=== PATIENT | male | born 1940 | race Caucasian/White ===

== ENCOUNTER 2020-02-16 07:44 | Outpatient (CLI) | payer MEDICARE, SELFPAY ==
[2020-02-17 14:46] LABS: SARS-CoV-2 RNA PCR Negative
== END 2020-02-16 07:45 | disposition home or self-care (01) ==
DX: Z01.818 Encounter for other preprocedural examination (principal); Z11.59 Encounter for screening for other viral diseases
CPT/HCPCS: 87635; C9803; U0003

== ENCOUNTER 2023-08-27 11:03 | Outpatient (CLI) | payer MEDICARE, SELFPAY ==
--- NOTE | 2023-08-27 11:37 | ECG_ITS ---
Measurements Intervals [place] Rate: 64 P: ND: 0 QRS: -7 QRSD: 101 T: 21 QT: 378 QTc: 390 Interpretive Statements SINUS RHYTHM CHANGES TO JUNCTIONAL RHYTHM BASELINE ARTIFACT- I, II, III, AVR, AVL, AVF ABNORMAL ECG NO PREVIOUS ECG AVAILABLE FOR COMPARISON Electronically Signed On 08-27-2023 12:27:58 [employer] by Jarvis Abraham D.O.
[2023-08-27 12:16] LABS: Hematocrit 43.2 % (42.0-52.0); Hemoglobin 14.1 g/dL (14.0-18.0); Mean Corpuscular HGB Conc 32.6 g/dl (32-36); Mean Corpuscular Hemoglobin 33.7 pg (26-34); Mean Corpuscular Volume 103.3 fl (80-100); Mean Platelet Volume 10.5 fl (7.4-10.4); Platelet Count Result 217 k/mm3 (150-375); Red Blood Count 4.18 M/mm3 (4.6-6.20); Red Cell Distribution Width 13.4 % (11.5-14.5); White Blood Count 7.3 K/mm3 (4.5-10.0)
[2023-08-27 12:18] LABS: Appearance Urine Clear (Clear); Bilirubin Urine Negative (Negative); Blood Urine Negative (Negative); Color Urine Yellow (Yellow); Glucose Urine UA Negative (Negative); Ketones Urine Negative (Negative); Leukocyte Esterase Ur Negative LEU/UL (Negative); Nitrate Urine Negative (Negative); Protein Urine Negative (Negative); Specific Grav Ur 1.011 (1.001-1.035)
[2023-08-27 12:21] LABS: Add Urine Microscopic? NO
[2023-08-27 12:26] LABS: Anion Gap 7 mmol/L (8-16); Blood Urea Nitrogen 19 mg/dL (9-20); Calcium 10.1 mg/dL (8.4-10.2); Carbon Dioxide 27 mmol/L (22-30); Chloride 101 mmol/L (98-107); Estimated Glomerular Filt Rate > 60; Glucose 99 mg/dL (65-110); Potassium 4.8 mmol/L (3.4-5.0); Sodium 135 mmol/L (137-145)
[2023-08-27 12:29] LABS: INR 1.2; Prothrombin Time 15.8 Seconds (11.1-14.7)
[2023-08-27 12:32] LABS: Partial Thromboplastin Time 36.7 SECONDS (22.3-36.8)
== END 2023-08-27 11:04 | disposition home or self-care (01) ==
PROVIDERS: PCP Internal Medicine Geriatric Medicine; Visit Provider Neurological Surgery
DX: M54.9 Dorsalgia, unspecified (principal); G89.29 Other chronic pain; E78.00 Pure hypercholesterolemia, unspecified; Z01.818 Encounter for other preprocedural examination
CPT/HCPCS: 36415; 80048; 81003; 85027; 85610; 85730; 93005

== ENCOUNTER 2023-09-04 02:44 | Day surgery (SDC) | payer MEDICARE, SELFPAY ==
[2023-08-24 14:52] VITALS: BMI 33.7
--- NOTE | 2023-08-24 15:08 | PC.NURSE ---
PRE-OP INSTRUCTIONS, PLEASE READ CAREFULLY Report to the Outpatient Waiting Room, entrance under the green pavilion located off [facility], at time _0730_ on date _09/04/23_. Planned Procedure Time: _0930_. PACK A SMALL OVERNIGHT BAG AND LEAVE IN THE CAR Time changes happen often and if your time is changed the preop area will call you the afternoon before. - You and your visitor will be asked to self-screen and do not enter if you have any COVID symptoms. - A mask is optional within the hospital at this time. -VISITING HOURS 8AM-8PM Patients may have clear liquids (water, carbonated beverages, clear teas, apple juice) until 3 hours prior to surgery (0630 AM) with a maximum of 20 ounces. - No food from midnight until time of surgery Take the following medications with a SIP of water the morning of surgery: _TRELEGY INHALER, & ALBUTEROL INHALER, TYLENOL IF NEEDED_ DO NOT STOP ANY OF YOUR OTHER PRESCRIPTION MEDICATIONS PRIOR TO SURGERY ?EXCEPT THE FOLLOWING Medications to discontinue per DR. CRANE/DR. NICOLE - _ELIQUIS 7 DAYS PRIOR TO SURGERY, Date to take last dose 08/27/23_ Medications to discontinue per ANESTHESIA - _VITAMINS & SUPPLEMENTS 3 DAYS PRIOR TO SURGERY, Date to take last dose 08/31/23_ Please no make-up, nail turkish, hairspray, perfume, deodorant, or body powder the day of surgery. No jewelry (including any body piercings) or valuables the day of surgery, leave them at home. Please take a shower or bath the night before, or the morning of, surgery with an antibacterial soap. Wear comfortable, loose fitting clothing. - Jewelry must be removed prior to entering the operating room. Rings and piercings that are not removed may be cut off. - The hospital will not accept responsibility for valuables. - Please leave all valuables, including medications, at home the day of surgery. If you are going home after surgery, a licensed driver/merchandiser must drive you home. - NO public transportation without another adult if you receive anesthesia. - We recommend that an adult stay with you for 24 hours following discharge. - We also recommend that you do not drive, make important decision, drink alcoholic beverages, or take any drugs that were not prescribed by your health care provider for at least 24 hours after your discharge time. Follow any additional instructions given to you from your surgeon. If you or anyone in your household have experienced Covid symptoms in the past week, please notify your surgeon or the nurse liaison at the phone number below for possible testing. Telephone instructions given to _PATIENT__and asked if any additional questions and then verbalized understanding. Patient advised to call surgeon office or pre surgery nurse liaison [phone] if any additional questions.
--- NOTE | 2023-09-03 15:08 | WPDANESEPPF ---
Anes - Initial Pre Proc Eval Procedure: Operation Date: 09/04/23 09:30 Proposed Procedures p Placement Dorsal Column Stimulator Lead and Generator - Michael Sears MD Date/Time: 09/03/23 15:08 Surgeon: Michael eSars MD Pre Op Diagnosis: dorsalgia,leg pain Patient Data Age: 82 Gender: M Height: 1.83 m Weight: 112.72 kg Allergies Allergy/AdvReac Type Severity Reaction Status Date / Time cefdinir Allergy Mild Jittery Verified 09/04/23 07:46 hydrocodone Allergy Mild Hives Verified 09/04/23 07:46 hydroxychloroquine Allergy Mild Hives Verified 09/04/23 07:46 lisinopril Allergy Mild Itching Verified 09/04/23 07:46 oxycodone Allergy Mild hives Verified 09/04/23 07:46 codeine AdvReac Mild Nausea Verified 09/04/23 07:48 Home Medications Medication Instructions Recorded Confirmed Type acetaminophen 650 mg 650 mg PO Q8H PRN Pain 12/15/22 09/04/23 History tablet,extended release albuterol sulfate 0.63 mg/3 mL 0.63 mg inhalation Q6H PRN Wheezing 12/15/22 09/04/23 History solution for nebulization albuterol sulfate 90 mcg/actuation 1 puff inhalation Q6H PRN Wheezing 12/15/22 09/04/23 History aerosol inhaler apixaban 5 mg tablet 5 mg PO BID 12/15/22 09/04/23 History benzonatate 100 mg capsule 100 mg PO TID PRN Cough 12/15/22 09/04/23 History cholecalciferol (vitamin D3) 50 50 mcg PO DAILY 12/15/22 09/04/23 History mcg (2,000 unit) capsule finasteride 5 mg tablet 5 mg PO DAILY 12/15/22 09/04/23 History fluticasone fur. 100 mcg-umeclid 1 inh inhalation DAILY 12/15/22 09/04/23 History 62.5 mcg-vilant 25 mcg inhalat.powder (Trelegy Ellipta) mecobalamin (vitamin B12) 1,000 1,000 mcg PO DAILY 12/15/22 09/04/23 History mcg chewable tablet pantoprazole 40 mg granules 40 mg PO DAILY 12/15/22 09/04/23 History delayed-release for susp in packet polyethylene glycol 3350 17 17 g PO DAILY 12/15/22 09/04/23 History gram/dose oral powder pravastatin 80 mg tablet 80 mg PO DAILY 12/15/22 09/04/23 History tamsulosin 0.4 mg capsule 0.4 mg PO DAILY 12/15/22 09/04/23 History vit 1 cap PO BID 12/15/22 09/04/23 History C,E,zinc,Hu-rnutv-2-lutein-zeaxanthin 250 mg-2.5 mg-0.5 mg capsule Patient hx anesthesia problems: none Family hx anesthesia problems: none Results Review: All pre-operative results and documents have been reviewed as part of the pre-operative evaluation. [facility] Past Medical History Medical History (Updated 09/03/23 @ 15:09 by Chad Dimas DO) Chronic pain COPD (chronic obstructive pulmonary disease) DVT (deep venous thrombosis) GERD (gastroesophageal reflux disease) Hyperlipidemia TIA (transient ischemic attack) Surgical History Surgical History H/O knee surgery (~2005) H/O sinus surgery (~1961) Hx of cholecystectomy (~2015) Family History Family History Father Heart disease Cerebrovascular accident Mother Carcinoma of colon Heart disease Cerebrovascular accident Sibling Alcoholism Heart disease Daughter Asthma Diabetes mellitus Social History Social History Smoking packs per day: 3 Smoking cigarettes per day: 60.0 Years smoked: 50 Smoking pack-years: 150.00 Smoking status: Former smoker Tobacco type: cigarettes Second hand tobacco smoke exposure: No Smoking end date: 10/08/07 Alcohol intake: current Drinks per week: 2 Alcohol use details: SOCIALLY 5/MONTH Substance use: never Substance use type: does not use Lack of Transportation: No Lack of Food: Never True Current Housing: I Have Housing Concerned About Future Housing: No Difficulty Paying Gas/Electric Bills: No Difficulty Paying for Meds: No Currently Unemployed: No Education: Trade/Vocational Certificate Difficulty w/ Childcare or Family Care: No Living arrangement
[2023-09-04] VITALS (16 sets, daily range): BP systolic 104–140; BP diastolic 49–95; PULSE 50–104; RESP 10–18; TEMP 36.1–36.6; O2SAT 92–100
--- NOTE | ~2023-09-04 | XR_ITS ---
XR fluoroscopy no charge Indication: Placement of neurostimulator lead. TECHNIQUE: Fluoroscopy used during Placement of neurostimulator lead. performed by [Michael gordon MD] on 09/04/2023. 10 seconds of fluoroscopy. with 2 fluoroscopic images captured. FINDINGS: Correlate with procedure note. IMPRESSION: Fluoroscopy used during Placement of neurostimulator lead.. Reviewed, dictated and finalized at location L. [employer]
[2023-09-04] MEDS: LACTATED RINGERS 1,000 ML 30 ML IV CONT (08:00)
[2023-09-04 08:35] LABS: INR 0.9; Partial Thromboplastin Time 27.8 SECONDS (22.3-36.8)
--- NOTE | 2023-09-04 09:44 | PM.IMHP ---
H&P: HPI History of Present Illness Date/Time: 09/04/23 09:44 Chief Complaint: Back and leg pain Narrative: Naveed is an 82-year-old gentleman with chronic back and leg pain that responded to a successful dorsal column stimulator trial who presents for permanent implantation. He has not changed appreciably since we last saw him. He does not have specific muscle group weakness or dermatomal numbness. He is not having any bowel or bladder difficulty. Review of Systems Review of Systems: Patient denies shortness of breath, cough, fever, chills, nausea, vomiting, weight loss, weight gain, chest pain, dysuria. He has back and leg pain as above. His review of systems is otherwise negative on 12 systems except as noted elsewhere. [facility] Past Medical History Medical History (Updated 09/03/23 @ 15:09 by Chad Dimas DO) Chronic pain COPD (chronic obstructive pulmonary disease) DVT (deep venous thrombosis) GERD (gastroesophageal reflux disease) Hyperlipidemia TIA (transient ischemic attack) Surgical History Surgical History H/O knee surgery (~2005) H/O sinus surgery (~1961) Hx of cholecystectomy (~2015) Family History Family History Father Heart disease Cerebrovascular accident Mother Carcinoma of colon Heart disease Cerebrovascular accident Sibling Alcoholism Heart disease Daughter Asthma Diabetes mellitus Social History Social History Smoking packs per day: 3 Smoking cigarettes per day: 60.0 Years smoked: 50 Smoking pack-years: 150.00 Smoking status: Former smoker Tobacco type: cigarettes Second hand tobacco smoke exposure: No Smoking end date: 10/08/07 Alcohol intake: current Drinks per week: 2 Alcohol use details: SOCIALLY 5/MONTH Substance use: never Substance use type: does not use Lack of Transportation: No Lack of Food: Never True Current Housing: I Have Housing Concerned About Future Housing: No Difficulty Paying Gas/Electric Bills: No Difficulty Paying for Meds: No Currently Unemployed: No Education: Trade/Vocational Certificate Difficulty w/ Childcare or Family Care: No Living arrangements: with family Spiritual care concerns: No Meds Home Medications and Allergies Home Medications Medication Instructions Recorded Confirmed Type acetaminophen 650 mg 650 mg PO Q8H PRN Pain 12/15/22 09/04/23 History tablet,extended release albuterol sulfate 0.63 mg/3 mL 0.63 mg inhalation Q6H PRN Wheezing 12/15/22 09/04/23 History solution for nebulization albuterol sulfate 90 mcg/actuation 1 puff inhalation Q6H PRN Wheezing 12/15/22 09/04/23 History aerosol inhaler apixaban 5 mg tablet 5 mg PO BID 12/15/22 09/04/23 History benzonatate 100 mg capsule 100 mg PO TID PRN Cough 12/15/22 09/04/23 History cholecalciferol (vitamin D3) 50 50 mcg PO DAILY 12/15/22 09/04/23 History mcg (2,000 unit) capsule finasteride 5 mg tablet 5 mg PO DAILY 12/15/22 09/04/23 History fluticasone fur. 100 mcg-umeclid 1 inh inhalation DAILY 12/15/22 09/04/23 History 62.5 mcg-vilant 25 mcg inhalat.powder (Trelegy Ellipta) mecobalamin (vitamin B12) 1,000 1,000 mcg PO DAILY 12/15/22 09/04/23 History mcg chewable tablet pantoprazole 40 mg granules 40 mg PO DAILY 12/15/22 09/04/23 History delayed-release for susp in packet polyethylene glycol 3350 17 17 g PO DAILY 12/15/22 09/04/23 History gram/dose oral powder pravastatin 80 mg tablet 80 mg PO DAILY 12/15/22 09/04/23 History tamsulosin 0.4 mg capsule 0.4 mg PO DAILY 12/15/22 09/04/23 History vit 1 cap PO BID 12/15/22 09/04/23 History C,E,zinc,Ny-yrvcm-0-lutein-zeaxanthin 250 mg-2.5 mg-0.5 mg capsule Allergies Allergy/AdvReac Type Severity Reaction Status Date / Time cefdinir Allergy Mild Jittery Verified 08/09
--- NOTE | 2023-09-04 09:46 | WPDHPUPDATE1 ---
History and Physical Update Update Date/Time: 09/04/23 09:46 History and Physical has been reviewed, including an updated exam of the patient. There are NO changes in the patient's condition. Risks, benefits, and alternatives have been discussed and questions answered. Patient agrees to proceed with procedure.
[2023-09-04] MEDS: ceFAZolin 2 GM/D5W 50 ML 2 GM/50 ML BAG IVPB (09:51)
[2023-09-04] MEDS: LIDO 1%/EPINEPHRINE 1:100,000 50 ML VIAL 20 ML INFILTRATE (10:26)
[2023-09-04] MEDS: VANCOMYCIN HCL 1,000 MG VIAL 500 MG TOPICAL (10:27)
[2023-09-04] MEDS: fentaNYL CITRATE INJ (*CRX) 100 MCG/2 ML VIAL 25 MCG IV PUSH ×4 (11:30→12:00)
[2023-09-04] MEDS: KCL 20 MEQ/D5/0.45% SOD CHL 1,000 ML 100 ML IV CONT (14:35)
[2023-09-04] MEDS: OPTI-GEN TAB 1 TABLET PO (17:16)
[2023-09-04] MEDS: MORPHINE SULFATE (*CRX) 2 MG/ML INJ IV PUSH (19:46)
[2023-09-04] MEDS: DOCUSATE SODIUM 100 MG CAPSULE PO (20:39)
--- NOTE | 2023-09-04 22:58 | W.PM.PROC2 ---
Procedure Note - Detailed Date of Procedure 09/04/23 Pre-op Diagnosis dorsalgia,leg pain Post-op Diagnosis Same Procedure Performed Placement of dorsal column stimulator lead and generator Surgeon Michael Sears MD Anesthesia General Description of Procedure the patient was brought to the operating room in the supine position, waaaaaaaaaaaaas sedated, intubated and placed under general anesthesia in routine fashion. He was then turned into the prone position on a Mg frame. The of operation on his back was examined, marked for incision, prepped and draped in routine sterile fashion. Incision was marked based on the T10 pedicles in the midline longitudinally and transversely in the left flank. These areas were injected with 0.5% lidocaine with [id number] epinephrine. Intravenous antibiotics were given prior to incision. Incision was made with a 10 blade scalpel down to the thoracic fascia and into the subcutaneous tissues. A pocket was created above and below the flank incision using curved Costa scissors and toothed forceps. At the thoracic incision a subperiosteal dissection of the muscle soft tissue away from the spinous process and lamina was performed with a subperiosteal elevator and Bovie cautery. Verifying x-rays obtained to verify the level of operation. At T9-10 a laminectomy was performed using a Leksell rongeur, Kerrison punches and curved curettes until the short wide area the dura was uncovered. The dorsal epidural space was cannulated with a malleable retractor. The lead was then placed into the dorsal epidural space until it was confirmed to be behind the T8 vertebral body in the midline. An anchor was attached to 1 of the wires which is attached the superior spinous process using a 3-0 Prolene suture. Tension relief loops were placed into both of the wires which were then buried the flank incision. They were inserted into the generator slots and secured there using the small screwdriver for that purpose. All the incisions were copiously irrigated with bacitracin irrigation all bleeding stopped with bipolar cautery and Gelfoam thrombin powder. The generator was then placed in the pocket with excess wire coiled up underneath it and with vancomycin impregnated pellets around the device. Impedance testing had been carried out to confirm good connectivity. The wounds were then closed with 2-0 Vicryl interrupted sutures in the thoracic fascia and 3-0 Vicryl buried interrupted sutures in the dermis and running 4-0 Monocryl subcuticular stitches in the skin and both incisions were dressed with Dermabond. The patient was allowed to wake up in the operating room and was taken to the recovery room in stable condition. There were no immediate complications of this operation. All counts were reported correct at end of case. Blood loss was 25 cc. The patient was neurologically at his baseline postoperatively. CPT codes: 97747, 07513 Estimated Blood Loss 25 IV Fluids 1,000 Complications None Disposition PACU [facility] Billing Surgery - Charge Forward: Surgery Billing
[2023-09-05 00:01] VITALS: BP 118/65; PULSE 61; RESP 20; TEMP 36.4; O2SAT 91
[2023-09-05 04:01] VITALS: BP 119/57; PULSE 53; RESP 24; TEMP 36.8; O2SAT 95
[2023-09-05] MEDS: FLUTICASONE/UMECLIDIN/VILANTER 100-62.5-25 MCG ELLIPTA 1 PUFF INHALATION (07:55)
[2023-09-05 08:01] VITALS: BP 111/61; PULSE 52; RESP 16; TEMP 36.6; O2SAT 95
[2023-09-05] MEDS: CYANOCOBALAMIN 1,000 MCG TABLET 1000 MCG PO (08:11)
[2023-09-05] MEDS: polyethylene glycoL 3350 17 GM POWD.PACK PO (08:11)
[2023-09-05] MEDS: PRAVASTATIN SODIUM 20 MG TABLET 80 MG PO (08:11)
[2023-09-05] MEDS: DOCUSATE SODIUM 100 MG CAPSULE PO (08:11)
[2023-09-05] MEDS: CHOLECALCIFEROL 1,000 UNITS TABLET 2000 UNITS PO (08:12)
[2023-09-05] MEDS: FINASTERIDE 5 MG TABLET PO (08:12)
[2023-09-05] MEDS: TAMSULOSIN HCL 0.4 MG CAPSULE PO (08:12)
[2023-09-05] MEDS: PANTOPRAZOLE 40 MG TABLET PO (08:12)
[2023-09-05] MEDS: OPTI-GEN TAB 1 TABLET PO (08:12)
[2023-09-05 12:00] VITALS: BP 134/64; PULSE 63; RESP 16; TEMP 36.9; O2SAT 98
--- NOTE | 2023-09-05 15:19 | WPDNEUROSGPN ---
Progress Note: A&P Assessment and Plan (1) Status post insertion of spinal cord stimulator: Code(s): Z96.89 - Presence of other specified functional implants Status: Acute Plan Discharge home today Restrictions and bathing instructions reviewed at bedside Plan to hold Eliquis for at least 7 days post-op Follow up with Dr. Sears as scheduled Subjective Date/time seen: 09/05/23 15:19 Interval history: Doing well with some incisional pain which is controlled with medication. Ambulating with wheeled walker. Tolerating PO. Would like to go home. Review of Systems Review of Systems: All systems reviewed & are unremarkable except as noted in HPI and below Exam Narrative: AOx4 Incisions c/d/i with dressings in place Ambulatory with wheeled walker Objective Data Vital Signs Vital Signs: Vital Signs - 24 hr 09/04/23 16:01 09/04/23 20:01 09/04/23 20:39 Temperature 97.7 F 97.3 F L Pulse Rate 72 77 Respiratory Rate 16 14 Blood Pressure 136/74 104/49 L Pulse Oximetry 99 92 Oxygen Delivery Room Air 09/05/23 00:01 09/05/23 04:01 09/05/23 08:01 Temperature 97.5 F L 98.2 F 97.8 F Pulse Rate 61 53 L 52 L Respiratory Rate 20 24 H 16 Blood Pressure 118/65 119/57 L 111/61 Pulse Oximetry 91 95 95 Oxygen Delivery 09/05/23 08:00 09/05/23 12:00 Temperature 98.5 F Pulse Rate 63 Respiratory Rate 16 Blood Pressure 134/64 Pulse Oximetry 98 Oxygen Delivery Room Air Intake/Output Intake/Output: Intake & Output 09/02/23 09/03/23 09/04/23 09/05/23 23:59 23:59 23:59 23:59 Intake Total 1490 580 Balance 1490 580 Meds/Results Medications: Active Medications Generic Name Dose Route Start Last Admin Trade Name Freq PRN Reason Stop Dose Admin Al Hydrox/Mg Hydrox/Simethicone 20 ml 09/04/23 13:01 Mag Hydrox/Al Hydrox/Simeth 30 Ml Udc PO Q4H PRN Indigestion/Heartburn Albuterol 0.63 mg 09/04/23 13:01 Albuterol Sulfate Neb 2.5 Mg/3 Ml Inh INHALATION Q6HRT PRN Wheezing Albuterol 1 puff 09/04/23 13:01 Albuterol Sulfate (*Sp) Aerosol 1 Puff INHALATION Q6H PRN Wheezing Benzonatate 100 mg 09/04/23 13:01 Benzonatate 100 Mg Capsule PO TID PRN Cough Bisacodyl 10 mg 09/04/23 13:01 Bisacodyl 10 Mg Suppository RECTAL DAILY PRN Constipation Cyanocobalamin 1,000 mcg 09/05/23 09:00 09/05/23 08:11 Cyanocobalamin 1,000 Mcg Tablet PO 10/05/23 08:59 1,000 mcg DAILY BRADLEY Administration Cyclobenzaprine HCl 10 mg 09/04/23 13:01 Cyclobenzaprine Hcl 10 Mg Tablet PO TID PRN Muscle Spasms Docusate Sodium 100 mg 09/04/23 21:00 09/05/23 08:11 Docusate Sodium 100 Mg Capsule PO 100 mg Q12HR BRADLEY Administration Finasteride 5 mg 09/05/23 09:00 09/05/23 08:12 Finasteride 5 Mg Tablet PO 5 mg DAILY BRADLEY Administration Fluticasone/Umeclidinium/Vilanterol 1 puff 09/05/23 08:00 09/05/23 07:55 Fluticasone/Umeclidin/Vilanter 100-62.5-25 Mcg Ellipta INHALATION 1 puff DAILYRT BRADLEY Administration Miscellaneous Information 0 each 09/04/23 00:01 Clarify Which To Use 1st- Albuterol Nebs Or Mdi XX 10/04/23 00:00 CLARIFY BRADLEY Morphine Sulfate 2 mg 09/04/23 13:01 09/04/23 19:46 Morphine Sulfate (*Crx) 2 Mg/Ml Inj IV PUSH 2 mg Q2H PRN Administration Pain Rated 7-10 Multivitamins/Minerals 1 tablet 09/04/23 17:00 09/05/23 08:12 Opti-Gen Tab PO 10/04/23 16:59 1 tablet BID BRADLEY Administration Ondansetron HCl 4 mg 09/04/23 13:01 Ondansetron Inj 4 Mg/2 Ml Vial IV PUSH Q8H PRN Nausea And Vomiting Pantoprazole Sodium 40 mg 09/05/23 09:00 09/05/23 08:12 Pantoprazole 40 Mg Tablet PO 10/05/23 08:59 40 mg DAILY BRADLEY Administration Polyethylene Glycol 17 gm 11/29/23 09:00 09/05/23 08:11 Polyethylene Glycol 3350 17 Gm Powd.Pack PO 17 gm DAILY BRADLEY Administration Pravastatin Sodium 80 mg 09/05/23 09:00 09/05/23
== END 2023-09-05 15:51 | disposition home or self-care (01) ==
LOC: ANHSURGERY 07:17 → ANH3MEDSUR 13:02
PROVIDERS: Anesthesiology; PCP Internal Medicine Geriatric Medicine; Visit Provider Neurological Surgery
PROC: (CPT 63685; principal; 2023-09-04 09:30)
DX: M47.816 Spondylosis without myelopathy or radiculopathy, lumbar region (principal); M79.606 Pain in leg, unspecified; G89.29 Other chronic pain; J44.9 Chronic obstructive pulmonary disease, unspecified; E78.5 Hyperlipidemia, unspecified; K21.9 Gastro-esophageal reflux disease without esophagitis; Z86.73 Personal history of transient ischemic attack (TIA), and cerebral infarction without residual deficits; Z87.891 Personal history of nicotine dependence; Z79.01 Long term (current) use of anticoagulants; Z79.51 Long term (current) use of inhaled steroids; Z86.718 Personal history of other venous thrombosis and embolism; E66.9 Obesity, unspecified; Z68.33 Body mass index [BMI] 33.0-33.9, adult
CPT/HCPCS: 63685; 63655; 36415; 85610; 85730; 94640; 97116; 97161; 97165; 97530; 97535; 99199; A9270; C1713; C1767; C1778; J0690; J1100; J2270; J2405; J2704; J3010; J3370; J3480; J7120